=== PATIENT | female | born 1940 ===

== ENCOUNTER 2024-01-28 19:57 | Emergency (ER) | payer MEDICARE, OTHER ==
[~2024-01-28] VITALS: Ht 162.6 cm; Wt 63.5 kg
[2024-01-28] MEDS ORDERED: IBUPROFEN 400 MG TABLET ONE (20:36)
[2024-01-28] MEDS ORDERED: CLONIDINE HCL 0.1 MG TABLET ONE (20:37)
[2024-01-28] MEDS ORDERED: HYDROCODONE/APAP 5-325MG TABLET ONE (20:37)
[2024-01-28] MEDS: CLONIDINE HCL 0.1 MG TABLET PO ONE (20:41)
[2024-01-28] MEDS: IBUPROFEN 400 MG TABLET PO ONE (20:41)
[2024-01-28] MEDS: HYDROCODONE/APAP 5-325MG TABLET PO ONE (20:42)
[2024-01-28 20:51] LABS: BASOPHILS # (AUTO) 0.2 K/UL (0.0-0.2); BASOPHILS % (AUTO) 2.3 % (0.0-2.0); DIFFERENTIAL COMMENT 0; EOSINOPHILS # (AUTO) 0.4 K/uL (0.0-0.7); EOSINOPHILS % (AUTO) 4.8 % (0.0-7.0); HEMATOCRIT 49.3 % (31.2-41.9); HEMOGLOBIN 15.3 g/dL (10.9-14.3); LYMPHOCYTES # (AUTO) 1.4 K/uL (0.8-4.8); LYMPHOCYTES % (AUTO) 16.5 % (20.5-51.5); MEAN CORPUSCULAR HEMOGLOBIN 24.7 uug (24.7-32.8); MEAN CORPUSCULAR HGB CONC 31 g/dL (32.3-35.6); MEAN CORPUSCULAR VOLUME 79.3 fL (75.5-95.3); MONOCYTES # (AUTO) 0.4 K/uL (0.1-1.30); MONOCYTES % (AUTO) 4.7 % (0.0-11.0); NEUTROPHILS # (AUTO) 5.9 K/uL (1.8-8.9); NEUTROPHILS % (AUTO) 71.7 % (38.5-71.5); PLATELET COUNT (AUTO) 293 K/uL (179-408); RED BLOOD CELL COUNT(AUTO) 6.21 MIL/uL (3.63-4.92); RED CELL DISTRIBUTION WIDTH 23.9 % (12.3-17.7); WHITE BLOOD COUNT (AUTO) 8.3 K/uL (3.8-11.8)
[2024-01-28 20:57] LABS: CALCIUM 9.3 mg/dL (8.5-10.1); CARBON DIOXIDE 21 mmol/L (21-32); CHLORIDE 109 mmol/L (98-107); CREATININE 1.2 mg/dL (0.6-1.3); GLUCOSE 176 mg/dL (74-106); POTASSIUM 4.2 mmol/L (3.5-5.1); SODIUM SERUM 143 mmol/L (136-145); UREA NITROGEN, BLOOD 36 mg/dL (7-18)
[2024-01-28 21:00] LABS: C-REACTIVE PROTEIN 0.14 mg/dL (0.00-0.30)
[2024-01-28 21:03] LABS: ALANINE AMINOTRANSFERASE 17 U/L (14-59); ALBUMIN 3.3 g/dL (3.4-5.0); ALKALINE PHOSPHATASE 92 U/L (50-136); ASPARTATE AMINOTRANSFERASE 15 U/L (15-37); TOTAL PROTEIN, SERUM 5.8 g/dL (6.4-8.2)
[2024-01-28 21:30] LABS: THYROID STIMULATING HORMONE 7.413 mIU/mL (0.358-3.740)
[2024-01-28] MEDS ORDERED: LEVO25TA2 PO (21:59)
[2024-01-28] MEDS ORDERED: ATEN25TA PO (21:59)
[2024-01-28] MEDS ORDERED: TEMA7.5C2 PO (21:59)
[2024-01-28] MEDS ORDERED: APIX2.5T PO (21:59)
[2024-01-28] MEDS ORDERED: CARV25TA2 PO (21:59)
[2024-01-28] MEDS ORDERED: predniSONE 20 MG TABLET ONE (22:23)
[2024-01-28] MEDS: predniSONE 20 MG TABLET PO ONE (22:29)
[2024-01-28] MEDS ORDERED: LIDO28.35 TP (22:57)
[2024-01-28] MEDS ORDERED: HYDR-4209 PO (22:57)
[2024-01-28] MEDS ORDERED: PRED20TA PO (22:57)
[2024-01-28 23:04] VITALS: BP 150/62; TEMP 98; O2SAT 96
== END 2024-01-28 23:06 | disposition home or self-care (01) ==
LOC: ER 19:57
DX: M25.512 Pain in left shoulder (principal); I10 Essential (primary) hypertension; E03.9 Hypothyroidism, unspecified; Z79.890 Hormone replacement therapy; Z79.52 Long term (current) use of systemic steroids
CPT/HCPCS: 99285; 71045; 80053; 84443; 85025; 86140; 84484; 36415; 93005; 73030; J7512; A4606; A4663

== ENCOUNTER 2024-02-07 15:50 | Emergency (ER) | payer MEDICARE, OTHER ==
[~2024-02-07] VITALS: Ht 160 cm; Wt 63.5 kg
[~2024-02-07 15:50] MED LIST: APIX2.5T PO; ATEN25TA PO; CARV25TA2 PO; HYDR-4209 PO; LEVO25TA2 PO; LIDO28.35 TP; PRED20TA PO; TEMA7.5C2 PO
[2024-02-07 16:21] LABS: BASOPHILS % (AUTO) 0.2 % (0.0-2.0); DIFFERENTIAL COMMENT 0; EOSINOPHILS # (AUTO) 0.5 K/uL (0.0-0.7); EOSINOPHILS % (AUTO) 5.6 % (0.0-7.0); HEMATOCRIT 48.8 % (31.2-41.9); HEMOGLOBIN 15.4 g/dL (10.9-14.3); LYMPHOCYTES # (AUTO) 1.3 K/uL (0.8-4.8); LYMPHOCYTES % (AUTO) 15.6 % (20.5-51.5); MEAN CORPUSCULAR HEMOGLOBIN 25.4 uug (24.7-32.8); MEAN CORPUSCULAR HGB CONC 32 g/dL (32.3-35.6); MEAN CORPUSCULAR VOLUME 80.2 fL (75.5-95.3); MONOCYTES # (AUTO) 0.9 K/uL (0.1-1.30); MONOCYTES % (AUTO) 11.3 % (0.0-11.0); NEUTROPHILS # (AUTO) 5.6 K/uL (1.8-8.9); NEUTROPHILS % (AUTO) 67.3 % (38.5-71.5); PLATELET COUNT (AUTO) 243 K/uL (179-408); RED BLOOD CELL COUNT(AUTO) 6.09 MIL/uL (3.63-4.92); WHITE BLOOD COUNT (AUTO) 8.3 K/uL (3.8-11.8)
[2024-02-07 16:29] LABS: CALCIUM 9.3 mg/dL (8.5-10.1); CARBON DIOXIDE 22 mmol/L (21-32); CHLORIDE 104 mmol/L (98-107); CREATININE 1.2 mg/dL (0.6-1.3); GLUCOSE 119 mg/dL (74-106); SODIUM SERUM 140 mmol/L (136-145); UREA NITROGEN, BLOOD 28 mg/dL (7-18)
[2024-02-07 16:42] LABS: ALANINE AMINOTRANSFERASE 16 U/L (14-59); ALKALINE PHOSPHATASE 85 U/L (50-136); ASPARTATE AMINOTRANSFERASE 12 U/L (15-37); BILIRUBIN,DIRECT 0.3 mg/dL (0.0-0.2); BILIRUBIN,TOTAL 1.4 mg/dL (0.2-1.0); NT-PRO BNP 1266 pg/mL (0-125); TOTAL PROTEIN, SERUM 5.6 g/dL (6.4-8.2)
[2024-02-07 18:30] VITALS: O2SAT 98
[2024-02-07] MEDS ORDERED: LIDO30AD10 TP (18:40)
[2024-02-07] MEDS ORDERED: OXYC-133 PO (18:40)
[2024-02-07] MEDS ORDERED: LIDOCAINE 5% PATCH TD ONE (18:42)
[2024-02-07] MEDS ORDERED: OXYCODONE/APAP 5-325 MG TABLET ONE ×2 (18:43→18:48)
[2024-02-07] MEDS: OXYCODONE/APAP 5-325 MG TABLET PO ONE (18:45)
[2024-02-07] MEDS: LIDOCAINE 5% PATCH TD ONE (18:45)
== END 2024-02-07 19:25 | disposition home or self-care (01) ==
LOC: ER 15:50
DX: M79.602 Pain in left arm (principal); R07.9 Chest pain, unspecified; E03.9 Hypothyroidism, unspecified; M19.012 Primary osteoarthritis, left shoulder; Z79.01 Long term (current) use of anticoagulants; Z79.52 Long term (current) use of systemic steroids; Z79.890 Hormone replacement therapy; Z60.2 Problems related to living alone
CPT/HCPCS: 36415; 71045; 73020; 84484; 85025; A4606; A4663